=== PATIENT | male | born 1990 | race African-American/Black ===

== ENCOUNTER 2020-04-28 10:35 | Emergency (ER) | payer SELFPAY ==
[~2020-04-28] VITALS: Ht 185.4 cm; Wt 68.2 kg
[2020-04-28 10:38] VITALS: TEMP 98.2
[2020-04-28 11:14] LABS: BASO % 0.7 % (0.0-2.0); EOS # 0.1 (0.0-0.7); EOS % 4.6 % (0-4.0); GRAN # 1.4 (1.4-6.5); GRAN % 47.2 % (42.2-75.2); HEMATOCRIT 44.5 % (42.0-52.0); HEMOGLOBIN 15.3 g/dl (13.5-18.0); LYMPH # 1.2 (1.2-3.4); LYMPH % 38.7 % (20.0-51.0); MEAN CELL VOLUME 90 fl (80.0-100.0); MEAN CORPUSCULAR HEMOGLOBIN 31 pg (27.0-31.0); MEAN CORPUSCULAR HGB CONC 34 g/dl (33.0-37.0); MEAN PLATELET VOLUME 9.8 fl (7.4-10.4); MONO # 0.3 (0.1-0.6); MONO % 8.5 % (1.7-9.3); PLATELET COUNT 159 K/mm3 (130-400); RED BLOOD COUNT 4.94 M/mm3 (4.20-5.60); REDCELL DISTRIBUTION WIDTH-CV 14.3 % (11.5-14.5)
[2020-04-28 11:24] LABS: ALBUMIN 4.7 gm/dL (3.5-5.0); BILIRUBIN,TOTAL 0.7 mg/dL (0.0-1.0); CALCIUM 9.2 mg/dL (8.4-10.2); CREATININE, serum 0.99 (0.66-1.25); POTASSIUM 3.9 mmol/L (3.4-5.0)
[2020-04-28] MEDS ORDERED: AMOXICILLIN875 MG PO (11:40)
[2020-04-28 11:50] VITALS: BP 132/77; PULSE 86
== END 2020-04-28 11:50 | disposition home or self-care (01) ==
LOC: COL.ER 10:35
PROVIDERS: Nurse Practitioner Primary Care
DX: K08.89 Other specified disorders of teeth and supporting structures (principal)
CPT/HCPCS: J1885; Q9967

== ENCOUNTER 2021-07-07 14:54 | Emergency (ER) | payer SELFPAY ==
[~2021-07-07] VITALS: Ht 185.4 cm; Wt 68.2 kg
[~2021-07-07 14:54] MED LIST: AMOXICILLIN875 MG PO
[2021-07-07 15:28] VITALS: BP 139/93
[2021-07-07 17:35] VITALS: PULSE 78
== END 2021-07-07 17:35 | disposition home or self-care (01) ==
LOC: COL.ER 14:54
DX: R11.2 Nausea with vomiting, unspecified (principal); R19.7 Diarrhea, unspecified; F17.210 Nicotine dependence, cigarettes, uncomplicated; Z20.822 Contact with and (suspected) exposure to COVID-19